=== PATIENT | male | born 1990 | race Caucasian/White ===

== ENCOUNTER 2019-06-08 08:47 | Emergency (ER) | payer MEDICAID ==
[2019-06-08 09:06] VITALS: O2SAT 100
--- NOTE | 2019-06-08 09:23 | ERPHSYRPT ---
- History of Present Illness Time Seen by Provider: 06/08/19 09:15 Source: patient Exam Limitations: no limitations Patient Subjective Stated Complaint: toothache for a long time. states is getting worse in the last week. pain is in upper left side. Triage Nursing Assessment: ambulated to room per self. skin w/d, color normal, resp nonlabored. no swellling of left jaw noted. Physician History: 28 y/o white male presents with chronic dental pain. in the last week, pain worse. pt has been using tylenol and ibuprofen for pain. Timing/Duration: gradual onset, intermittent, persistent Severity: mild ENT Location: dental Prearrival Treatment: over the counter meds Associated Symptoms: tooth pain Allergies/Adverse Reactions: No Known Drug Allergies Allergy (Unverified 06/08/19 08:55) Home Medications: Citalopram Hydrobromide [Citalopram HBr] 40 mg PO DAILY 06/08/19 [History] clonazePAM [Klonopin] 1 mg PO BID 06/08/19 [History] Hx Tetanus, Diphtheria Vaccination/Date Given: No Hx Influenza Vaccination/Date Given: No Hx Pneumococcal Vaccination/Date Given: No - Review of Systems Constitutional: No Symptoms Eyes: No Symptoms Ears, Nose, & Throat: Other (dental pain) Respiratory: No Symptoms Cardiac: No Symptoms Abdominal/Gastrointestinal: No Symptoms Genitourinary Symptoms: No Symptoms Musculoskeletal: No Symptoms Skin: No Symptoms Neurological: No Symptoms Psychological: No Symptoms Endocrine: No Symptoms Hematologic/Lymphatic: No Symptoms Immunological/Allergic: No Symptoms All Other Systems: Reviewed and Negative - Past Medical History Pertinent Past Medical History: Yes Neurological History: No Pertinent History ENT History: No Pertinent History Cardiac History: No Pertinent History Respiratory History: No Pertinent History Endocrine Medical History: No Pertinent History Musculoskeletal History: No Pertinent History GI Medical History: No Pertinent History History: No Pertinent History Psycho-Social History: Anxiety, Depression - Past Surgical History Past Surgical History: No Neuro Surgical History: No Pertinent History Cardiac: No Pertinent History Respiratory: No Pertinent History Gastrointestinal: No Pertinent History Genitourinary: No Pertinent History Musculoskeletal: No Pertinent History Male Surgical History: No Pertinent History - Social History Smoking Status: Current every day smoker How long have you smoked: 10 Exposure to second hand smoke: No Drug Use: none Patient Lives Alone: No - Nursing Vital Signs Nursing Vital Signs: Initial Vital Signs Temperature 97.4 F 06/08/19 08:51 Pulse Rate 70 06/08/19 08:51 Respiratory Rate 16 06/08/19 08:51 Blood Pressure 116/70 06/08/19 08:51 O2 Sat by Pulse Oximetry 100 06/08/19 08:51 Pain Scale Pain Intensity 10 - Physical Exam General Appearance: no apparent distress, alert, anxiety Eye Exam: bilateral eye: normal inspection, PERRL, EOMI Ear Exam: bilateral ear: auricle normal Nasal Exam: normal inspection Throat Exam: dental tenderness (generalized poor dentition with multiple fx teeth) Neck Exam: normal inspection, non-tender, supple, full range of motion, trachea midline Cardiovascular/Respiratory Exam: chest non-tender, no respiratory distress Abdominal Exam: non-tender Neurologic Exam: alert, oriented x 3, cooperative, supply person II-XII nml as tested, normal mood/affect, nml cerebellar function, nml station & gait Skin Exam: normal color, warm, dry SpO2 Interpretation: normal SpO2: 100 O2 Delivery: Room Air - Course Nursing assessment & vital signs reviewed: Yes - Progress Progress: unchanged Counseled pt/family regarding: diagnosis, need for follow-up - Departure Departure Disposition: Home Clinical Impression: Chronic dental infection, Pain, dental Condition: Stable Critical Care Time: No Additional Instructions: continue tylenol and ibuprofen for pain. follow up with dentist for definitive care Prescriptions: Amoxicillin 500 mg Cap [Amoxil 500 mg] 500 mg PO TID #30 capsule
[2019-06-08] MEDS ORDERED: AMOXIL 500 MG PO ONE (09:33)
[2019-06-08] MEDS ORDERED: AMOXIL 500 MG ONE (09:37)
[2019-06-08 09:42] VITALS: BP 112/72; PULSE 66
== END 2019-06-08 09:47 | disposition home or self-care (01) ==
LOC: ED 08:47
DX: K04.7 Periapical abscess without sinus (principal); K08.89 Other specified disorders of teeth and supporting structures
CPT/HCPCS: 99283; A9270-GY